=== PATIENT | male | born 1995 | race Caucasian/White ===

== ENCOUNTER 2022-02-28 20:34 | Emergency (ER) | payer OTHER ==
[2022-02-28] MEDS ORDERED: IBUPROFEN 600 MG TABLET PO STA (21:28)
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
--- NOTE | 2022-02-28 22:34 | XRAY Report ---
PROCEDURE: Chest 1 View X-Ray INDICATIONS: chest pain TECHNIQUE: One view of the chest was acquired. COMPARISON: None. FINDINGS: Surgical changes and devices: None. Lungs and pleura: No pleural effusions or pneumothorax. Lungs are clear. Mediastinum: Mediastinal contours appear normal. Heart size is normal. Bones and chest wall: No suspicious bony lesions. Overlying soft tissues appear unremarkable. IMPRESSION: 1. No acute cardiopulmonary disease. Reviewed by: Krish Carvalho MD on 02/28/2022 10:33 PM PDT Approved by: Krish Carvalho MD on 02/28/2022 10:33 PM PDT Station ID: [id number]
[2022-02-28 22:35] VITALS: BP 144/89
== END 2022-02-28 22:33 | disposition home or self-care (01) ==
LOC: ED 20:34
DX: S29.011A Strain of muscle and tendon of front wall of thorax, initial encounter (principal); W50.0XXA Accidental hit or strike by another person, initial encounter; Y93.61 Activity, american tackle football
CPT/HCPCS: 71045; 99282; 99283; A9270

== ENCOUNTER 2023-01-24 13:25 | Outpatient (CLI) | payer OTHER | END 2023-01-24 13:26 | disposition critical access hospital (66) | LOC: EMS 13:25 | DX: R11.2 Nausea with vomiting, unspecified (principal); R42 Dizziness and giddiness; T46.5X1A Poisoning by other antihypertensive drugs, accidental (unintentional), initial encounter | CPT/HCPCS: A0425; A0429 ==

== ENCOUNTER 2023-01-24 13:49 | Observation (INO) | payer OTHER ==
[2023-01-24] MEDS ORDERED: CHARCOAL/SORBITOL 50 GM/240 ML PO STA (14:15)
[2023-01-24] MEDS ORDERED: SODIUM CHLORIDE 0.9% 1,000 ML IV STA ×2 (14:15)
--- NOTE | 2023-01-24 14:24 | ED Physician Documentation ---
History of Present Illness - Stated complaint Stated Complaint: OD - Chief complaint Chief Complaint: MHE - Additonal information Additional information: 27-year-old male, who is active duty [employer], presents to the emergency department via EMS after intentional overdose. The patient reports that he is having some marital strife. In a moment of emotional distress he took 40 0.1 mg clonidine tablets. He states that he immediately regretted the choice and about 5 to 10 minutes later he induced emesis and vomited what he reports to be most of the clonidine tablets up. His [id number] who is in attendance notified EMS. The patient at this time denies thoughts of self-harm or harm to others. He denies any history of previous suicide attempt. We had contacted [facility] poison control. Though the patient appears to have vomited the majority of the tablets up they made the immediate recommendations to give the patient a liter of IV fluid followed by 150 mL of fluid thereafter. They recommended 50 g of activated charcoal. They also requested routine CBC, electrolytes urine drug screen salicylates, Tylenol and alcohol levels. They requested EKGs every 2 hours for a total number of 3. The patient is to be observed for minimum of 12 hours. Observe for EKG changes to include QRS widening, seizure activity and mental status changes On presentation the patient is alert very well-appearing. His EKG shows sinus rhythm with no QT or QRS widening. He is neurologically intact. Patient states that he takes Cymbalta every a.m. for depression/anxiety and clonidine before bedtime to help with sleep Review of Systems Constitutional: denies: Fever, Chills Respiratory: reports: Reviewed and negative GI: reports: Reviewed and negative : reports: Reviewed and negative Psychiatric: reports: Depressed, Anxiety. denies: Suicidal, Homicidal, Hallucinations, Delusions PD PAST MEDICAL HISTORY - Past Surgical History Past Surgical History: No - Present Medications Home Medications: Ambulatory Orders Medication Instructions Recorded Confirmed DULoxetine [Cymbalta] 60 mg PO DAILY 01/24/23 01/24/23 Ibuprofen 2 tab PO HS PRN 01/24/23 01/24/23 Lidocaine Patch 5% [Lidoderm Patch] 1 patch TOP DAILY 01/24/23 01/24/23 cloNIDine [Catapres] 1 - 2 tab PO HS 01/24/23 01/24/23 - Allergies Allergies/Adverse Reactions: Allergies Allergy/AdvReac Type Severity Reaction Status Date / Time No Known Drug Allergies Allergy Verified 01/24/23 14:00 - Social History Does the pt smoke?: No Smoking Status: Never smoker Does the pt drink ETOH?: No Does the pt have substance abuse?: No - Immunizations Immunizations are current?: Yes PD ED PE NORMAL - General General: Alert and oriented X 3, No acute distress - HEENT HEENT: Atraumatic, Moist mucous membranes - Neck Neck: Supple, no meningeal sign, No adenopathy - Cardiac Cardiac: RRR, No murmur - Respiratory Respiratory: No respiratory distress, Clear bilaterally - Abdomen Abdomen: Normal bowel sounds, Soft, Non tender - Derm Derm: Normal color, Warm and dry - Extremities Extremities: No deformity, No tenderness to palpate, Normal ROM s pain - Neuro Neuro: Alert and oriented X 3, drug enforcement agent 2-12 intact Eye Opening: Spontaneous Motor: Obeys Commands Verbal: Oriented GCS Score: 15 - Psych Psych: Normal mood Results - Vitals Vitals: Vital Signs - 24 hr 01/24/23 13:59 Temperature 37.2 C Heart Rate 70 Respiratory 18 Rate Blood Pressure 135/86 H O2 Saturation 98 Oxygen O2 Source Room air - EKG (time done) 1358 EKG releavant findings:: EKG personally interpreted by author of this note. Relevant findings are: Rate: Rate (enter#) (69) Rhythm: NSR [place]: Normal Intervals: Normal VT. No: Prolonged QT QRS: Normal Ischemia: ST elevation c/w repol Compare to prior EKG: Old EKG unavailable Computer interpretation: Agree with computer 1638 EKG releavant findings:: EKG personally interpreted by author of this note. Relevant findings are: Rate: Rate (enter#) (63) Rhythm: NSR [place]: Normal Intervals: Normal VT QRS: Normal Ischemia: Normal ST segments Compare to prior EKG: Unchanged from prior EKG Computer interpretation: Agree with computer - Labs Labs: Laboratory Tests 01/24/23 01/24/23 01/24/23 14:23 14:23 14:23 WBC 5.9 RBC 4.74 Hgb 13.4 L Hct 40.2 L MCV 84.8 MCH 28.3 MCHC 33.3 RDW 13.1 Plt Count 235 MPV 10.2 Neut # (Auto) 4.2 Lymph # (Auto) 1.2 L [place] # (Auto) 0.4 Eos # (Auto) 0.1 Baso # (Auto) 0.0 Absolute Nucleated RBC 0.00 Nucleated RBC % 0.0 Sodium 135 Potassium 4.0 Chloride 103 Carbon Dioxide 25 Anion Gap 7.0 BUN 13 Creatinine 0.6 Estimated GFR (MDRD) 164 Glucose 133 H Lactic Acid Calcium 8.8 Total Bilirubin 0.5 AST 25 ALT 34 Alkaline Phosphatase 52 Total Protein 7.4 Albumin 3.9 Globulin 3.5 Albumin/Globulin Ratio 1.1 Lipase 40 TSH 3.44 Urine Color Urine Clarity Urine pH Ur Specific [place]icket Urine Protein Urine Glucose (UA) Urine Ketones Urine Occult Blood Urine Nitrite Urine Bilirubin Urine Urobilinogen Ur Leukocyte Esterase Ur Microscopic Review Urine Culture Comments Salicylates < 6.0 Urine Opiates Screen Ur Oxycodone Screen Urine Methadone Screen Ur Propoxyphene Screen Acetaminophen < 10 L Ur Barbiturates Screen Ur Tricyclics Screen Ur Phencyclidine Scrn Ur Amphetamine Screen U Methamphetamines Scrn U Benzodiazepines Scrn Urine Cocaine Screen U Cannabinoids Screen Ethyl Alcohol < 5.0 01/24/23 01/24/23 01/24/23 14:23 15:05 15:05 WBC RBC Hgb Hct MCV MCH MCHC RDW Plt Count MPV Neut # (Auto) Lymph # (Auto) [place] # (Auto) Eos # (Auto) Baso # (Auto) Absolute Nucleated RBC Nucleated RBC % Sodium Potassium Chloride Carbon Dioxide Anion Gap BUN Creatinine Estimated GFR (MDRD) Glucose Lactic Acid 1.6 Calcium Total Bilirubin AST ALT Alkaline Phosphatase Total Protein Albumin Globulin Albumin/Globulin Ratio Lipase TSH Urine Color YELLOW Urine Clarity CLEAR Urine pH 6.0 Ur Specific [place]icket 1.010 Urine Protein NEGATIVE Urine Glucose (UA) NEGATIVE Urine Ketones NEGATIVE Urine Occult Blood NEGATIVE Urine Nitrite NEGATIVE Urine Bilirubin NEGATIVE Urine Urobilinogen 0.2 (NORMAL) Ur Leukocyte Esterase NEGATIVE Ur Microscopic Review NOT INDICATED Urine Culture Comments NOT INDICATED Salicylates Urine Opiates Screen NEGATIVE Ur Oxycodone Screen NEGATIVE Urine Methadone Screen NEGATIVE Ur Propoxyphene Screen NEGATIVE Acetaminophen Ur Barbiturates Screen NEGATIVE Ur Tricyclics Screen NEGATIVE Ur Phencyclidine Scrn NEGATIVE Ur Amphetamine Screen NEGATIVE U Methamphetamines Scrn NEGATIVE U Benzodiazepines Scrn NEGATIVE Urine Cocaine Screen NEGATIVE U Cannabinoids Screen NEGATIVE Ethyl Alcohol PD Medical Decision Making - ED course Complexity details: reviewed results, re-evaluated patient, considered differential, d/w patient ED course: This is a very well-appearing 27-year-old gentleman that was brought into the ER via EMS after an intentional overdose on clonidine. Reports having marital strife and and in the moment of emotional lability and impulsivity he swallowed 40 clonidine pills. About 5 to 10 minutes later he introduced self vomiting and reports he vomited most of the clonidine up. He was at home with his [id number] and she summoned EMS. Nursing staff contacted [facility] poison control. Though the patient had reported vomiting most aconitine up they felt he warranted at least 12 hours of observation. This should include repeat EKGs every 2 hours for total of 3. We are looking for QRS widening. Routine CBC, electrolytes urine drug screen, alcohol Tylenol and salicylates will be ordered. They also recommended 50 g of activated charcoal, IV fluid bolus and IV fluids at 150 cc an hour. Per my orders patient did receive activated charcoal as well as IV fluids. My interpretation of his CBC, electrolytes urine drug screen and Tylenol salicylates and alcohol are that there are no acute worrisome findings. His EKG here initially showed sinus rhythm without findings of QRS widening. A repeat EKG about 3 hours later was essentially unchanged. He has been neurologically stable without excessive sedation or any seizure activity noted. The patient denies any thoughts of suicide at this time. His ultimate goal is to be discharged home. However given the prolonged nature of observation he will be admitted to our hospital. He would not be medically cleared until 2 AM thus social work will likely see in the a.m. I anticipate discharge home tomorrow afternoon if he remains otherwise medically and psychologically stable. I spoke with Dr. Hang Betancourt hospitalist on duty today who graciously agrees to bring the patient in for observation. Departure - Departure Disposition: ED Place in Observation Clinical Impression: Overdose by ingestion Condition: Stable
[2023-01-24 14:28] LABS: BASOPHILS % (AUTO) 0.3 %; EOSINOPHILS # (AUTO) 0.1 10^3/uL (0.0-0.7); EOSINOPHILS % (AUTO) 1.9 %; HCT - HEMATOCRIT 40.2 % (42.0-52.0); HGB - HEMOGLOBIN 13.4 g/dL (14.0-18.0); LYMPHOCYTES # (AUTO) 1.2 10^3/uL (1.5-3.5); LYMPHOCYTES % (AUTO) 20.4 %; MEAN CORPUSCULAR HEMOGLOBIN 28.3 pg (27.0-31.0); MEAN CORPUSCULAR HGB CONC 33.3 g/dL (32.0-36.0); MEAN CORPUSCULAR VOLUME 84.8 fL (80.0-94.0); MEAN PLATELET VOLUME 10.2 fL (7.4-11.4); MONOCYTES # (AUTO) 0.4 10^3/uL (0.0-1.0); MONOCYTES % (AUTO) 6.9 %; NEUTROPHILS # (AUTO) 4.2 10^3/uL (1.5-6.6); PLT - PLATELET COUNT 235 10^3/uL (130-450); RED BLOOD COUNT 4.74 10^6/uL (4.70-6.10); RED CELL DISTRIBUTION WIDTH 13.1 % (12.0-15.0); WHITE BLOOD COUNT 5.9 x10^3/uL (4.8-10.8)
[2023-01-24 14:43] LABS: ACETAMINOPHEN < 10 ug/mL (10-30); ALBUMIN 3.9 g/dL (3.2-5.5); ALBUMIN/GLOBULIN RATIO 1.1 (1.0-2.2); ALKALINE PHOSPHATASE 52 IU/L (42-121); ALT ALANINE AMINOTRANSFERASE 34 IU/L (10-60); AST ASPARTATE AMINOTRANSFERASE 25 IU/L (10-42); BILIRUBIN,TOTAL 0.5 mg/dL (0.2-1.0); BUN - BLOOD UREA NITROGEN 13 mg/dL (6-20); CALCIUM 8.8 mg/dL (8.5-10.3); CARBON DIOXIDE - CO2 25 mmol/L (21-32); CHLORIDE 103 mmol/L (101-111); CREATININE 0.6 mg/dL (0.6-1.2); ETOH - ETHANOL < 5.0 mg/dL; GFR - MDRD 164 (>89); GLUCOSE 133 mg/dL (70-100); LIPASE 40 U/L (22-51); SALICYLATE < 6.0 mg/dL; SODIUM 135 mmol/L (135-145); TOTAL PROTEIN 7.4 g/dL (6.7-8.2)
[2023-01-24] MEDS ORDERED: ACETAMINOPHEN 325 MG TABLET PO PRN (15:13)
[2023-01-24] MEDS ORDERED: IBUPROFEN 600 MG TABLET PO PRN (15:13)
[2023-01-24] MEDS ORDERED: ONDANSETRON ODT 4 MG TABLET TL PRN (15:13)
[2023-01-24] MEDS ORDERED: SODIUM CHLORIDE FLUSH 0.9% 10 ML SYRINGE IVP PRN (15:13)
[2023-01-24 15:17] LABS: BILIRUBIN,URINE NEGATIVE (NEGATIVE); GLUCOSE, URINE (UA) NEGATIVE (NEGATIVE); KETONES,URINE (UA) NEGATIVE (NEGATIVE); LEUKOCYTE ESTERASE, URINE NEGATIVE (NEGATIVE); NITRITE,URINE NEGATIVE (NEGATIVE); OCCULT BLOOD,URINE NEGATIVE (NEGATIVE); PROTEIN,URINE NEGATIVE (NEGATIVE); UROBILINOGEN,URINE 0.2 (NORMAL) E.U./dL (NORMAL)
[2023-01-24 15:24] LABS: CLARITY,URINE CLEAR (CLEAR)
[2023-01-24 15:29] LABS: MUDS CUTOFF CONCENTRATIONS CUTOFF CONC BELOW:
[2023-01-24 15:45] LABS: AMPHETAMINE SCREEN,URINE NEGATIVE (NEGATIVE); BARBITURATE SCREEN,UR NEGATIVE (NEGATIVE); BENZODIAZEPINES SCREEN, URINE NEGATIVE (NEGATIVE); COCAINE SCREEN URINE NEGATIVE (NEGATIVE); METHADONE SCREEN, URINE NEGATIVE (NEGATIVE); METHAMPHETAMINES SCREEN, URINE NEGATIVE (NEGATIVE); OPIATE SCREEN, URINE NEGATIVE (NEGATIVE); OXYCODONE SCREEN, URINE NEGATIVE (NEGATIVE); PROPOXYPHENE SCREEN, URINE NEGATIVE (NEGATIVE); THC CANNABINOID SCREEN, URINE NEGATIVE (NEGATIVE); TRICYCLIC ANTIDEPRESSANT,URINE NEGATIVE (NEGATIVE)
--- NOTE | 2023-01-24 16:43 | HISTORY & PHYSICAL EXAMINATION ---
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 Patient states he been having some marital stress and in a moment of exacerbation of that stress he took the full contents of a bottle of clonidine tablets. 0.1 mg. He estimates there were probably about 40 tablets in the bottle. He admits to immediate regret after doing this and within less than 10 minutes he self-induced emesis and was able to vomit what he reported to be most of the tablets. His [id number] was present and she called paramedics. He was brought in in stable condition. The patient currently stating he has no suicidal intention or suicidal ideation. He was seen in the ED and evaluated for the drug overdose. He was hemodynamically stable, awake and alert and oriented x3, looking essentially well with a normal physical exam and unremarkable vital signs and labs. [facility] poison control was contacted for recommendations who recommended to the ED to start with a liter of IV fluid followed by 150 mL of fluid thereafter. They recommended 50 g of activated charcoal and routine labs. They recommended a series of 3 EKGs over 6 hours every 2 hours. They recommended a 12-hour minimum observation and to observe for QRS widening or seizure activity or mental status changes. History - Past Medical History Cardiovascular: reports: None Respiratory: reports: None Neuro: reports: None Psych: reports: Depression, Anxiety MRSA Hx?: Yes Meds/Allgy - Home Medications Home Medications: Ambulatory Orders Medication Instructions Recorded Confirmed DULoxetine [Cymbalta] 60 mg PO DAILY 01/24/23 01/24/23 Ibuprofen 2 tab PO HS PRN 01/24/23 01/24/23 Lidocaine Patch 5% [Lidoderm Patch] 1 patch TOP DAILY 01/24/23 01/24/23 cloNIDine [Catapres] 1 - 2 tab PO HS 01/24/23 01/24/23 - Allergies Allergies/Adverse Reactions: Allergies Allergy/AdvReac Type Severity Reaction Status Date / Time No Known Drug Allergies Allergy Verified 01/24/23 14:00 Review of Systems - Psychiatric Psychiatric: reports: Depression - All Other Systems All Other Systems: reports: Reviewed and negative Prior Level of Functionality: Fully independent healthy active 27-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 [employer] Exam - Vital Signs Reviewed Vital Signs: Yes Vital Signs: Vital Signs x48h Temp Pulse Resp BP Pulse Ox 01/24/23 15:16 68 18 130/73 99 01/24/23 13:59 37.2 C 70 18 135/86 H 98 - Physical Exam General Appearance: positive: No acute distress Eyes Bilateral: positive: Normal inspection, PERRL, EOMI ENT: positive: ENT inspection nml, Pharynx nml, No signs of dehydration Neck: positive: Nml inspection, Thyroid nml Respiratory: positive: Chest non-tender, No respiratory distress, Breath sounds nml Cardiovascular: positive: Regular rate & rhythm, No murmur, No gallop Abdomen: positive: Non-tender, No organomegaly, Nml bowel sounds, No distention Back: positive: Nml inspection Skin: positive: Color nml, No rash, Warm, Dry Extremities: positive: Non-tender, Full ROM, Nml appearance Neurologic/Psychiatric: positive: Oriented x3, CN's nml (2-12). negative: Slurred/abnml speech, Depressed mood/affect Conclusion/Plan - Problem List (1) Overdose by ingestion Conclusion/Plan: Patient with unintentional overdose of clonidine without any evidence deficits or sequelae given that the patient was able to self-induced vomiting and notes to have vomited the majority of tablets he took. Patient immediately regretted this and states no current suicidal ideation. Patient will be admitted as per recommendations by poison control, with serial EKG every 2 hours x 3. Total observation time of 12 hours. IV fluids. We will obtain Social work consult in the a.m. He will require one-to-one sitter. (2) Depression Conclusion/Plan: Patient with history of depression on Cymbalta who currently denies any suicidal ideation shortly after a regretted clonidine overdose. Will be admitted for observation. To be seen by social work in the a.m. Hold Cymbalta until observation period for overdose has ended. - Lab Results Lab results reviewed: Yes Fish Bones: 01/24/23 14:23 01/24/23 14:23 - EKG Results EKG Interpreted Independently: Yes Core Measures - Anticipated LOS I expect patient to be DC'd or transferred within 96 hours.: Yes - DVT/VTE - Prophylaxis VTE/DVT Device ordered at admit?: No Not Ordered - Low Risk: Very low risk
--- NOTE | 2023-01-24 16:56 | PHARMACY PROGRESS NOTE ---
- Best Possible Medication History Admit Date and Time: 01/24/23 1513 Processed by: Pharmacy Medication History completed: Yes Patient Interview: Completed Secondary Source(s): Pharmacy records As the person ultimately responsible for medication therapy, providers are able to order a medication from an existing home medication list in [facility] via the "Reconcile Routine" prior to Confirmation of that medication by instructional support assistant. Such practice is discouraged except when the physician, in their clinical judgment, deems that a medical need exists for a medication without regard to previous use.
[2023-01-24] MEDS: SODIUM CHLORIDE 0.9% 1,000 ML IV SCH (18:03)
[2023-01-24] MEDS: SODIUM CHLORIDE FLUSH 0.9% 10 ML SYRINGE IVP SCH (18:07)
[2023-01-25] MEDS: SODIUM CHLORIDE 0.9% 1,000 ML IV SCH ×2 (00:11→08:27)
[2023-01-25] MEDS: SODIUM CHLORIDE FLUSH 0.9% 10 ML SYRINGE IVP SCH ×2 (00:12→08:27)
--- NOTE | 2023-01-25 10:53 | Discharge Plan ---
Discharge Plan Problem Reviewed?: Yes Disposition: 01 Home, Self Care Condition: Stable Diet: Regular Activity Restrictions: No Restrictions Shower Restrictions: No Driving Restrictions: No Health Concerns: You are hospitalized, as recommended by Poison Control Center, to monitor you for any complications after you took an intentional overdose of Clonidine, then you vomited most of it up. You are being discharged home today, since everything being monitored is stable. Please resume your Cymbalta medicine. Please talk to your provider regarding the Clonidine. Plan of Treatment: As above. Care Goals: Improvement in symptoms and stabilization are the goals. Assessment: The patient understands and is agreeable with the plan. No Smoking: If you smoke, Please STOP! Call for help. Follow-up with: JOE MALIK MD [Physician No Access] -
--- NOTE | 2023-01-25 10:55 | DISCHARGE SUMMARY ---
Discharge Summary Admit Date: 01/24/23 Discharge Date: 01/25/23 Discharging Provider: Dr Kamilah Benavides Primary Care Provider: Dr JOE Whatley Condition at Discharge: Stable Discharge Disposition: 01 Home, Self Care - HPI History of Present Illness: Patient is a healthy 27-year-old male who is active duty with the [employer] who presented to the emergency department after an intentional drug overdose. Patient states he been having some marital stress and in a moment of exacerbati on of that stress he took the full contents of a bottle of clonidine tablets. 0.1 mg. He estimates there were probably about 40 tablets in the bottle. He admits to immediate regret after doing this and within less than 10 minutes he self-induced emesis and was able to vomit what he reported to be most of the tablets. His [id number] was present and she called paramedics. He was brought in in stable condition. The patient currently stating he has no suicidal intention or suicidal ideation. He was seen in the ED and evaluated for the drug overdose. He was hemodynamically stable, awake and alert and oriented x3, looking essentially well with a normal physical exam and unremarkable vital signs and labs. [facility] poison control was contacted for recommendations who recommende d to the ED to start with a liter of IV fluid followed by 150 mL of fluid thereafter. They recommended 50 g of activated charcoal and routine labs. They recommended a series of 3 EKGs over 6 hours every 2 hours. They recommended a 12-hour minimum observation and to observe for QRS widening or seizure activity or mental status changes. - HOSPITAL COURSE Hospital Course: (1) Overdose by ingestion Patient was placed in Observation status after an intentional overdose of about 40 tablets of Clonidine, then was able to self-induce vomiting and noted that he vomited the majority of tablets he took. Patient immediately regretted taking the pills and stated he had no current suicidal ideation. He was without any evidence deficits or sequelae. He had telemetry, EKG and clinical monitoring and had no complications. He was seen the next day by KATY and was deemed safe to be discharged. (2) Depression Patient has a history of depression, on Cymbalta. He denied any suicidal ideation shortly after a regretted Clonidine overdose. Cymbalta was okayed to be resumed after discharge. (3) Insomnia He reported that he took the Clonidine for insomnia. It was advised that this be stopped, and that he speak to a provider. - ALLERGIES Allergies/Adverse Reactions: Allergies Allergy/AdvReac Type Severity Reaction Status Date / Time No Known Drug Allergies Allergy Verified 01/24/23 14:00 - MEDICATIONS Home Medications: Ambulatory Orders Medication Instructions Recorded Confirmed DULoxetine [Cymbalta] 60 mg PO DAILY 01/24/23 01/24/23 Ibuprofen 2 tab PO HS PRN 01/24/23 01/24/23 Lidocaine Patch 5% [Lidoderm Patch] 1 patch TOP DAILY 01/24/23 01/24/23 - PHYSICAL EXAM AT DISCHARGE General Appearance: positive: No acute distress, Alert, Other (Obese young male) Eyes Bilateral: positive: Normal inspection, EOMI ENT: positive: ENT inspection nml, No signs of dehydration Neck: positive: Nml inspection, No JVD Respiratory: positive: No respiratory distress Cardiovascular: positive: Regular rate & rhythm Abdomen: positive: Non-tender, No distention Skin: positive: Warm, Dry Extremities: positive: Non-tender, No pedal edema Neurologic/Psychiatric: positive: Oriented x3, Motor nml - LABS Result Diagrams: 01/24/23 14:23 01/24/23 14:23 - DIAGNOSTIC IMAGING Diagnostic Imaging Results: Final report reviewed - FOLLOW UP Follow Up: See PCP or mental health provider in next 5-10 days. - TIME SPENT Time Spent in Discharge (Minutes): 20
[2023-01-25 11:04] VITALS: BP 111/67
== END 2023-01-25 12:45 | disposition home or self-care (01) ==
LOC: EDUNIT# → ED 13:49 → MS2 15:13
PROVIDERS: ADMIT Family Medicine Sports Medicine; ATTEND Internal Medicine
DX: T46.5X2A Poisoning by other antihypertensive drugs, intentional self-harm, initial encounter (principal); Y92.009 Unspecified place in unspecified non-institutional (private) residence as the place of occurrence of the external cause; F32.A Depression, unspecified; G47.00 Insomnia, unspecified; E66.9 Obesity, unspecified; Z68.37 Body mass index [BMI] 37.0-37.9, adult; F41.9 Anxiety disorder, unspecified
CPT/HCPCS: 36415; 80053; 80306; 80307; 80320; 80329; 81003; 83605; 83690; 84443; 85025; 93005; 96360; 96361; 99285; A9270; G0378; 81001; 87086

== ENCOUNTER 2023-10-19 13:30 | Outpatient (CLI) | payer OTHER | END 2023-10-19 13:45 | disposition home or self-care (01) | LOC: LAB.N 13:30 | PROVIDERS: ATTEND Family Medicine | DX: L05.91 Pilonidal cyst without abscess (principal) | CPT/HCPCS: 87070; 87205 ==